=== PATIENT | male | born 1950 | race Caucasian/White ===

== ENCOUNTER 2017-06-28 17:31 | Observation (INO) | payer MEDICARE, OTHER ==
[~2017-06-28] VITALS: Ht 188 cm; Wt 97.5 kg
[2017-06-28 18:21] LABS: APPEARANCE CLEAR (CLEAR); BILIRUBIN NEGATIVE (NEGATIVE); COLOR YELLOW (YELLOW); GLUCOSE NEGATIVE (NEGATIVE); KETONE NEGATIVE (NEGATIVE); LEUKOCYTE ESTERASE NEGATIVE (NEGATIVE); NITRITE NEGATIVE (NEGATIVE); PROTEIN NEGATIVE (NEGATIVE); SPECIFIC GRAVITY 1.025 (1.005-1.020); UROBILINOGEN NORMAL (NORMAL)
[2017-06-28 18:37] LABS: BASOPHILS 0.5 % (0-2); EOSINOPHILS 0.5 % (0-7); HEMATOCRIT 44.3 % (42.0-54.0); HEMOGLOBIN 14.6 g/dL (13.5-17.5); IMMATURE GRANULOCYTES 0.2 % (0-5); LYMPHOCYTES 20.2 % (15-50); MCH 31.7 pg (26.0-34.0); MCV 96.3 fL (80.0-100.0); MEAN PLATELET VOLUME 9.8 fL (7.4-10.4); MONOCYTES 8.1 % (2-11); NEUTROPHILS 70.5 % (40-80); PLATELET COUNT 207 10x3/uL (130-400); RDW 13.5 % (11.5-14.5); WBC 8.7 10x3/uL (4.8-10.8)
[2017-06-28 18:59] LABS: ALBUMIN 3.7 g/dL (3.4-5.0); ALKALINE PHOSPHATASE 72 U/L (46-116); ALT (SGPT) 24 U/L (10-68); BILIRUBIN - TOTAL 0.39 mg/dL (0.2-1.3); CALC OSMOLALITY 286 mosm/kg (275-300); CALCIUM 8.5 mg/dL (8.5-10.1); CARBON DIOXIDE 26.5 mmol/L (21.0-32.0); CHLORIDE - SERUM 106 mmol/L (98-107); GLUCOSE 106 mg/dL (74-106); POTASSIUM - SERUM 4.3 mmol/L (3.5-5.1); PROTEIN - SERUM 7.1 g/dL (6.4-8.2); SODIUM 143 mmol/L (136-145); UREA NITROGEN 19 mg/dL (7-18); eGFR NON AFRICAN AMERICAN 79 mL/min (90-120)
[2017-06-28] MEDS ORDERED: CARDURA4 MG PO (23:00)
[2017-06-28] MEDS ORDERED: PRAVASTATIN SOD10 MG PO (23:01)
[2017-06-28] MEDS ORDERED: PROSCAR5 MG PO (23:01)
[2017-06-28 23:32] VITALS: BP 134/70; BMI 27.6
--- NOTE | 2017-06-28 23:58 | NUR ---
REC'D FROM [facility] IN ER. ALERT AND ORIENTED X3. DENIED PAIN AT THIS TIME. DENIED FURTHER NEEDS AT THIS TIME. NO DISTRESS NOTED. INSTRUCTED TO CALL IF NEEDED ANYTHING. VERBALIZED UNDERSTANDING. IV IS TO THE RIGHT FOREARM, PATENT, SALINE LOCKED. HAS SLIGHT RIGHT SIDED WEAKNESS. SPEECH IS CLEAR AND APPROPRIATE. LUNGS CLEAR IN ALL LOBES. BOWELS ACTIVE X4. REPORTED NO PAIN ON URINATION, BUT THAT HE DOES HAS URINE RETENTION DUE TO HIS PROSTATE PROBEMS. MUSCLE STRENGTH 4/5. FULL ROM IN UPPER AND LOWER EXTREMITIES. CAP REFILL <3 SECS. SKIN WARM, DRY, INTACT, AND NON TENTING. BED LOW, LOCKED CALL LIGHT IN REACH. WILL CONT TO MONITOR. ALYX RAGSDALE, WILL DO THE ADMIT ASSESMENT.
[2017-06-29 04:00] VITALS: BP 128/74
--- NOTE | 2017-06-29 04:00 | NUR ---
EYES CLOSED RESPIRATIONS WITH EASE AND UNLABORED.
--- NOTE | 2017-06-29 07:20 | NUR ---
REPORT RECEIVED FROM BILINGUAL ACCOUNT MANAGER NURSE. CALL LIGHT IN REACH.L
--- NOTE | 2017-06-29 07:36 | NUR ---
PATIENT IN BED WITH EYES OPEN. NO PROBLEMS NOTED AT THIS TIME. DR. AMADOR AT BEDSIDE. CALL LIGHT WITHIN REACH.
--- NOTE | 2017-06-29 08:26 | NUR ---
Patient Name: DICKSON FISHER Admission Status: ER Accout number: [id number] Admission Date: 06-28-2017 : 1950 Admission Diagnosis: Attending: EVA Current LOS: 1 Anticipated DC Date: 07-01-2017 Planned Disposition: Home Primary Insurance: MEDICARE A & B Discharge Planning Comments: CM MET WITH PATIENT REGARDING D/C NEEDS AND PLANS. PATIENT STATED HE LIVES WITH HIS SPOUSE (SUNITHA). PATIENT STATED HIS CAR IS HERE AND HE WILL DRIVE HIMSELF HOME AT DISCHARGE. THERE ARE 7 STEPS TOEN ENTER HOME W/RAIL AND [address] INSIDE WITH RAILING. PATIENT STATED HE IS INDEPENDENT WITH HIS CARE AND HAS A SHOWER CHAIR AND CPAP AT HOME. PATIENTS PCP IS DR. CLAUDIA CORNELIUS AND PHARMACY IS [facility]. PATIENT DOES NOT WANT HOME HEALTH AT DISCHARGE. CM WILL CONTINUE TO FOLLOW PATIENT WITH D/C NEEDS AND PLANS. PCP DR[facility] ([facility]) [phone] SUNITHA () [phone] Manager General: Lindsey Barajas Is the patient Alert and Oriented? Yes 0 * How many steps to enter\exit or inside your home? 7 0 * PCP DR. CLAUDIA CORNELIUS 0 * Pharmacy [facility] 0 * Preadmission Environment Home with Family 0 * ADLs Independent 0 * Equipment CPAP Shower Chair 0 * List name and contact numbers for known caregivers / representatives who currently or will assist patient after discharge: SUNITHA () [phone] * Community resources currently utilized None 0 * Additional services required to return to the preadmission environment? Yes 0 * Can the patient safely return to the preadmission environment? Yes 0 * Has this patient been hospitalized within the prior 30 days at any hospital? No 0 Grand Total: 0
--- NOTE | 2017-06-29 08:37 | NUR ---
ASSESSMENT COMPLETED. ASA PO. SCDs PLACED TO BLE. BED ALARM ON. CALL LIGHT IN REACH. DENIES NEEDS. CARE PLAN REVIEWED. WILL CONTINUE WITH PLAN OF CARE.
[2017-06-29 09:03] VITALS: BP 145/72
--- NOTE | 2017-06-29 10:57 | NUR ---
TO MRI AND BACK. STATES THEY WILL COME BACK AND GET HIM.
[2017-06-29 11:28] LABS: BASOPHILS 0.4 % (0-2); EOSINOPHILS 2.1 % (0-7); HEMATOCRIT 43.5 % (42.0-54.0); HEMOGLOBIN 14.6 g/dL (13.5-17.5); IMMATURE GRANULOCYTES 0.2 % (0-5); LYMPHOCYTES 28.7 % (15-50); MCH 31.9 pg (26.0-34.0); MCHC 33.6 g/dL (31.0-37.0); MCV 95.2 fL (80.0-100.0); MEAN PLATELET VOLUME 9.8 fL (7.4-10.4); MONOCYTES 9.5 % (2-11); NEUTROPHILS 59.1 % (40-80); PLATELET COUNT 206 10x3/uL (130-400); RBC 4.57 10x6/uL (4.20-6.10); RDW 13.6 % (11.5-14.5)
[2017-06-29 11:44] LABS: ALBUMIN 3.3 g/dL (3.4-5.0); ALKALINE PHOSPHATASE 67 U/L (46-116); ALT (SGPT) 22 U/L (10-68); BILIRUBIN - TOTAL 0.44 mg/dL (0.2-1.3); CALC OSMOLALITY 282 mosm/kg (275-300); CALCIUM 8.5 mg/dL (8.5-10.1); CARBON DIOXIDE 29.8 mmol/L (21.0-32.0); CHLORIDE - SERUM 106 mmol/L (98-107); CHOL - HDL RATIO 3.3 ratio (2.3-4.9); CHOLESTEROL, TOTAL 125 mg/dL (0-200); CREATININE - SERUM 0.9 mg/dL (0.6-1.3); GLUCOSE 82 mg/dL (74-106); HDL CHOLESTEROL 38 mg/dL (32-96); LDL CHOLESTEROL 67 mg/dL (0-100); LDL-HDL RATIO 1.8 ratio (1.5-3.5); SODIUM 142 mmol/L (136-145); TRIGLYCERIDE 100 mg/dL (30-200); UREA NITROGEN 14 mg/dL (7-18); eGFR NON AFRICAN AMERICAN 89 mL/min (90-120)
--- NOTE | 2017-06-29 12:40 | NUR ---
BACK IN MRI AT THIS TIME.
--- NOTE | 2017-06-29 14:26 | NUR ---
PHYSICAL THERAPY IN ROOM TO SEE PATIENT.
[2017-06-29 14:34] VITALS: Ht 188 cm; Wt 97.5 kg
--- NOTE | 2017-06-29 15:41 | NUR ---
PROTONIX 40 MG PO. CALL LIGHT IN REACH.
--- NOTE | 2017-06-29 17:08 | NUR ---
FAMILY IN ROOM. DENIES NEEDS AT THIS TIME. CALL LIGHT IN REACH.
[2017-06-29 17:44] VITALS: BP 101/57
--- NOTE | 2017-06-29 18:08 | NUR ---
NO CHANGES IN INITIAL ASSESSMENT. CALL LIGHT IN REACH. SCDs TO BLE. WILL CONTINUE WITH PLAN OF CARE.
--- NOTE | 2017-06-29 19:58 | NUR ---
Received patient in bed, alert and oriented x 4, SCDs on, PIV in right forearm is SL. Denies any pain or discomfort at this time. States he would like to find out what caused his memory lapse that led to his hospitalization. 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 Patient is on room air, respirations easy and regular.
[2017-06-29 23:59] VITALS: BP 106/54
--- NOTE | 2017-06-29 23:59 | NUR ---
Noted to have low HR today, @0903 = 50, @1744 = 46, and @2359 = 47. Will continue to monitor. Patient denies any symptoms at this time. States he is feeling good.
--- NOTE | 2017-06-30 05:20 | NUR ---
Patient has slept fairly well this shift, respirations unlabored. No voiced complaints.
--- NOTE | 2017-06-30 05:28 | NUR ---
Called Practice Nurse, Car Escort placed on patient as per orders.
[2017-06-30 06:26] LABS: BASOPHILS 0.3 % (0-2); EOSINOPHILS 2.7 % (0-7); HEMATOCRIT 44.5 % (42.0-54.0); HEMOGLOBIN 14.7 g/dL (13.5-17.5); IMMATURE GRANULOCYTES 0.2 % (0-5); MCH 31.7 pg (26.0-34.0); MCV 96.1 fL (80.0-100.0); MEAN PLATELET VOLUME 9.8 fL (7.4-10.4); NEUTROPHILS 54.8 % (40-80); PLATELET COUNT 184 10x3/uL (130-400); RBC 4.63 10x6/uL (4.20-6.10); RDW 13.6 % (11.5-14.5); WBC 9.4 10x3/uL (4.8-10.8)
[2017-06-30 07:02] LABS: ALBUMIN 3.3 g/dL (3.4-5.0); ALKALINE PHOSPHATASE 68 U/L (46-116); ALT (SGPT) 21 U/L (10-68); BILIRUBIN - TOTAL 0.35 mg/dL (0.2-1.3); CALC OSMOLALITY 281 mosm/kg (275-300); CALCIUM 8.3 mg/dL (8.5-10.1); CARBON DIOXIDE 28.4 mmol/L (21.0-32.0); CHLORIDE - SERUM 106 mmol/L (98-107); GLUCOSE 90 mg/dL (74-106); POTASSIUM - SERUM 4.4 mmol/L (3.5-5.1); PROTEIN - SERUM 6.5 g/dL (6.4-8.2); SODIUM 141 mmol/L (136-145); UREA NITROGEN 14 mg/dL (7-18); eGFR NON AFRICAN AMERICAN 79 mL/min (90-120)
--- NOTE | 2017-06-30 07:30 | NUR ---
REPORT RECEIVED FROM MANUAL TESTER NURSE. CALL LIGHT IN REACH.
[2017-06-30 09:33] VITALS: BP 136/77
--- NOTE | 2017-06-30 09:34 | NUR ---
ASSESSMENT COMPLETED. ASA PO. REFUSES SCDs. IN ROOM. CALL LIGHT IN REACH. WILL CONTINUE WITH PLAN OF CARE.
[2017-06-30] MEDS ORDERED: ASPIRIN325 MG PO (11:51)
--- NOTE | 2017-06-30 11:57 | NUR ---
IV DC'D WITH TIP INTACT.
--- NOTE | 2017-06-30 13:12 | NUR ---
CM REASSESSMENT NOTE: PATIENT IS D/C HOME TODAY/ AT BEDSIDE. PATIENT REFUSED HOME HEALTH NEEDS AND HAD NO OTHER NEEDS FOR D/C.
--- NOTE | 2017-06-30 13:33 | NUR ---
DC INSTRUCTIONS EXPLAINED TO PATIENT AND . VERBALIZED UNDERSTANDING.
--- NOTE | 2017-06-30 13:36 | NUR ---
PT SEEN FOR [facility] [employer] SPECIALIST NOTE. NO COMPLAINTS VOICED. STATES FEELS GOOD TODAY. FOR DISCHARGE. VISITOR AT BEDSIDE
[2017-06-30 13:40] VITALS: BP 120/63
--- NOTE | 2017-06-30 13:53 | NUR ---
DC'D TO VEHICLE VIA WITH .
--- NOTE | 2017-06-30 17:37 | EC ---
PATIENT:DICKSON FISHER DATE OF SERVICE: 06/28/17 SEX: M MEDICAL RECORD: [id number] DATE OF : [birth year] LOCATION:D.[facility] [place] AGE OF PATIENT: 66 ADMISSION DATE: 06/28/17 REFERRING PHYSICIAN: INTERPRETING PHYSICIAN: JOSETTE GONZALEZ MD ECHOCARDIOGRAM REPORT ECHO CHARGES 4 ECHO COMPLETE CLINICAL DIAGNOSIS: CVA ECHOCARDIOGRAPHIC MEASUREMENTS (adult normal given) AC root (d.<3.7cm) 3.5 cm LV Septum d (<1.2 cm> 1.7 cm Valve Excursion 1.8 cm LV Septum (systole) 1.8 cm Left Atria (s.<4.0cm> 3.8 cm LVPW d(<1.2cm) 1.6 cm RV (d.<2.3cm) 4.5 cm LVPW (sytole) 2.1 cm LV diastole(<5.6CM) 4.9 cm MV E-F(>70mm/sec) cm LV systole 3.3 cm LVOT Diameter 0.80 cm MV exc.(>10mm) 1.5 cm Est.ejection fraction (50-75%) % Pericardial Effusion N DOPPLER: LVIT cm/sec A 93.0 cm/sec E 104 cm/sec LA cm/sec RVSP 28 mmHg LVOT 119 cm/sec AOP1/2T 796 m/s Asc. Ao 278 cm/sec RVOT 97 cm/sec RA cm/sec PA 147 cm/sec AV Gradient Peak 30.84mmHg AV Mean 18.62mmHg AV Area 0.2 cm MV Gradient Peak 5.94 mmHg MV Mean 1.33 mmHg MV Area cm COMMENTS: Tobacco Sizer: 2 KATELYN HUDDLESTON Histotechnician: 4 Dr. Gonzalez TAPE# PACS DATE OF SERVICE: 06/30/2017 Echocardiogram, transthoracic. FINDINGS: 1. The left ventricle is difficult to visualize, but appears to have concentric left ventricular hypertrophy with preserved left ventricular ejection fraction. Inflow characteristics appear normal. There is no regional wall motion abnormalities. 2. The right ventricle appears to be normal structure with normal function, ECHOCARDIOGRAM REPORT [id number] DICKSON FISHER although it is difficult to visualize. 3. Left atrium appears to be normal size and normal function. 4. The right atrium appears to have slight enlargement. 5. The mitral valve has mitral annular calcification. There is no evidence of significant mitral stenosis or mitral regurgitation. 6. Aortic valve is thickened, calcified, and sclerotic with evidence of severe aortic stenosis. Valve gradient is in 3 cm per second. The angle; however, may have underestimated the peak gradient and the gradient appears to be eccentric in its characteristics. There is trace aortic insufficiency. 7. The IVC was not demonstrated. 8. The pulmonic valve is grossly normal. 9. The tricuspid valve has mild tricuspid regurgitation with estimated PA pressure of 28 mmHg. 10. The pericardium is shown to be normal. CONCLUSIONS: The patient has concentric left ventricular hypertrophy and evidence of significant aortic valve stenosis. RECOMMENDATIONS: Further studies of pulmonary and aortic valve to more accurately quantify the severity. A ROBYN may. TRANSINT:[id number] Voice Confirmation ID: [id number] DOCUMENT ID: [id number] JOSETTE GONZALEZ MD at 1737 CC: [id number] DICTATION DATE: 06/30/17 07 UI DEVELOPER WITH ANGULAR JS: 06/30/17 0801 DIS IN 06/30/17 [id number] [place] [address]
--- NOTE | 2017-07-04 08:06 | EEG ---
PATIENT:DICKSON FISHER DATE OF SERVICE: 06/28/17 MEDICAL RECORD: [id number] DATE OF : [birth year] LOCATION:D.222 D.MS ADMISSION DATE: 06/28/17 REFERRING PHYSICIAN: INTERPRETING PHYSICIAN: JUICE AMADOR MD DATE OF SERVICE: 06/29/2017 Referred by myself as an inpatient, currently in room 2227. ELECTROENCEPHALOGRAM NUMBER: [id number]. DATE OF EXAMINATION: 06/29/2017 at 9:30 a.m. TECHNICAL DATA: This electroencephalographic recording consisted of approximately 20 minutes of data collection utilizing the international 10/20 system of electrode placement and both referential and non-referential montages. Sixteen channels of electrocerebral recording are accompanied by a 17th channel dedicated to the electrocardiographic rhythm and 2 channels of electromyographic recording. Recording is performed in the awake and drowsy states utilizing activation by photic stimulation. ELECTROENCEPHALOGRAPHIC DATA: The awake state comprises approximately 30% of the recorded electrocerebral activity. Electromyographic artifact is prominent and rapid eye movements are seen. The posterior dominant background consists of a well-developed, symmetric, rhythmic, waxing and waning alpha activity of 9-10 Hz, which is suppressed by eye opening. The drowsy state comprises the remaining portion of the recorded electrocerebral activity. Electromyographic artifact is diminished and rapid eye movements are not seen. The posterior dominant background is relatively suppressed. No abnormal nor focal slowing is identified. No epileptiform discharges are seen. Photic stimulation induces no abnormal change in the recorded electrocerebral activity. INTERPRETATION: Normal (awake and drowsy). This is a normal electroencephalographic recording. TRANSINT:[id number] Voice Confirmation ID: [id number] DOCUMENT ID: [id number] JUICE AMADOR MD at 0806 CC: [id number] DICTATION DATE: 06/30/17 0805 COP WINDER: 06/30/17 2217 DIS IN 06/30/17 [address] [place] [address]
== END 2017-06-30 13:53 | disposition home or self-care (01) ==
LOC: D.ER 17:31 → D.MS 21:51 → OBSVTIME 21:51 → D.MS 06-30 13:53
PROVIDERS: Family Medicine; ADMIT Family Medicine
DX: G45.4 Transient global amnesia (principal); R00.1 Bradycardia, unspecified; G47.33 Obstructive sleep apnea (adult) (pediatric); K21.9 Gastro-esophageal reflux disease without esophagitis; Z87.891 Personal history of nicotine dependence